=== PATIENT | male | born 1980 | race Caucasian/White ===

== ENCOUNTER 2020-10-28 19:55 | Emergency (ER) | payer BC, SELFPAY ==
[2020-10-28 19:54] VITALS: BP 152/80; PULSE 78; RESP 20; TEMP 37.2; O2SAT 97
[2020-10-28 19:59] VITALS: PULSE 68
--- NOTE | 2020-10-28 20:00 | ECG_ITS ---
Measurements Intervals [place] Rate: 71 P: 45 NH: 174 QRS: 18 QRSD: 117 T: 28 QT: 381 QTc: 416 Interpretive Statements SINUS RHYTHM INCOMPLETE RIGHT BUNDLE BRANCH BLOCK BASELINE ARTIFACT- I, II, III, AVR, AVL, AVF, V1 BORDERLINE ECG Electronically Signed On 10-29-2020 6:52:44 RN COMMUNITY by Scott Swift D.O.
[2020-10-28 20:01] VITALS: O2SAT 96
[2020-10-28 20:19] LABS: Basophils Absolute Auto 0.1 K/mm3 (0.0-0.1); Basophils Percent Auto 0.7 % (0.2-1.2); Eosinophils Absolute Auto 0.1 K/mm3 (0-0.3); Hematocrit 41.5 % (42.0-52.0); Hemoglobin 14.9 g/dL (14.0-18.0); Immature Granulocyte Absolute 0.03 K/mm3 (0.00-0.031); Immature Granulocyte Percent A 0.4 % (0-0.5); Lymphocytes Percent Auto 40.6 % (18.3-44.2); Mean Corpuscular HGB Conc 35.9 g/dl (32-36); Mean Corpuscular Hemoglobin 28.7 pg (26-34); Mean Corpuscular Volume 79.8 fl (80-100); Mean Platelet Volume 10.9 fl (7.4-10.4); Monocytes Absolute Auto 0.6 K/mm3 (0.1-0.6); Monocytes Percent Auto 8.7 % (2.6-8.5); Neutrophils Absolute Auto 3.3 K/mm3 (1.3-6.7); Neutrophils Percent Auto 47.6 % (45.5-73.1); Platelet Count Result 271 k/mm3 (150-375); Red Cell Distribution Width 12.5 % (11.5-14.5); White Blood Count 6.9 K/mm3 (4.5-10.0)
[2020-10-28 20:31] LABS: Anion Gap 7 mmol/L (8-16); Blood Urea Nitrogen 18 mg/dL (9-20); Calcium 9.1 mg/dL (8.4-10.2); Carbon Dioxide 27 mmol/L (22-30); Chloride 104 mmol/L (98-107); Estimated CRCL calculation 101 ml/min; Estimated Glomerular Filt Rate > 60; Glucose 104 mg/dL (75-110); Potassium 3.9 mmol/L (3.4-5.0); Sodium 138 mmol/L (137-145)
--- NOTE | 2020-10-28 22:12 | ED.SYNCOPE ---
HPI - Syncope General Chief Complaint: Syncope Stated Complaint: anxiety Time Seen by Provider: 10/28/20 20:58 Source: patient Mode of arrival: ambulatory Limitations: no limitations History of Present Illness HPI narrative: This is a 40 year old male who presents for evaluation of a syncopal episode. He states he was sitting at the table talking to his family about recent family issues and he started feeling warm and flush. He got up from the table to walk around and he states he became dizzy. He states he passed out and he hit his head. He also thinks he landed on his right elbow. He denies chest pain, shortness of breath. He does report a mild headache but it has improved. He has been dealing with low back pain for several weeks. He states he injured it with some heavy lifting. He has been seeing a chiropractor for his pain. He denies history of cardiac disease or syncopal episodes. Related Data Allergies Allergy/AdvReac Type Severity Reaction Status Date / Time latex Allergy Mild LOCAL RASH Verified 10/28/20 19:59 Review of Systems Review of Systems: All systems reviewed & are unremarkable except as noted in HPI and below PMFSH Past Medical History Medical History (Updated 10/29/20 @ 00:00 by Julia Brewster MD) Hypertension Surgical History Surgical History (Updated 10/28/20 @ 22:18 by Julia Brewster MD) No pertinent past surgical history Social History Social History (Updated 10/28/20 @ 22:18 by Julia Brewster MD) Smoking status: Never smoker Alcohol intake: current Alcohol use details: occasionally Exam Const: General: no acute distress and alert Orientation/consciousness: patient oriented x3 Eyes: Pupils: Equal, round and reactive pupils present EOM: EOMs intact bilaterally Resp: Effort & Inspection: normal respiratory effort and no retractions Auscultation: clear to auscultation bilaterally Cardio: Rate: regular rate Rhythm: regular rhythm Heart sounds: no murmurs Skin: General skin exam: normal color Rashes: no rashes Neuro: General: patient oriented x3, moves all extremities and CN's II-XI intact bilaterally Psych: Mental Status: mental status grossly normal Affect: normal affect Course Reevaluation(s) Reevaluation #1: PAtient states he feels better. He denies dizziness. I performed orthostats supine 168/89 BP 74 HR sitting 160/100 BP 80 HR standing 159/99 BP 73 HR. He did not have palpitations , chest pain or sob. He will follow up with PCP for further evaluation. Date: 10/28/20 Time: 23:56 Vital Signs Vital signs: Vital Signs Temperature 98.9 F 10/28/20 19:54 Pulse Rate 78 10/28/20 19:54 Respiratory Rate 20 10/28/20 19:54 Blood Pressure 152/80 H 10/28/20 19:54 Pulse Oximetry 97 10/28/20 19:54 Temperature 97.4 F L 10/29/20 00:13 Pulse Rate 86 10/29/20 00:13 Respiratory Rate 20 10/29/20 00:13 Blood Pressure 131/84 10/29/20 00:13 Pulse Oximetry 97 10/29/20 00:13 MDM - Syncope Lab Data Attestation: I reviewed the patient's lab results. Result diagrams: 10/28/20 20:05 10/28/20 20:05 Labs: Lab Results 10/28/20 10/28/20 10/28/20 Range/Units 20:05 20:05 22:28 WBC 6.9 (4.5-10.0) K/mm3 RBC 5.20 (4.6-6.20) M/mm3 Hgb 14.9 (14.0-18.0) g/dL Hct 41.5 L (42.0-52.0) % MCV 79.8 L (80-100) fl MCH 28.7 (26-34) pg MCHC 35.9 (32-36) g/dl RDW 12.5 (11.5-14.5) % Plt Count 271 (150-375) k/mm3 MPV 10.9 H (7.4-10.4) fl Immature Gran % (Auto) 0.4 (0-0.5) % Neut % (Auto) 47.6 (45.5-73.1) % Lymph % (Auto) 40.6 (18.3-44.2) % Stokes % (Auto) 8.7 H (2.6-8.5) % Eos % (Auto) 2.0 (0-4.4) % Baso % (Auto) 0.7 (0.2-1.2) % Lymph # (Auto) 2.80 (0.9-3.2) K/mm3 Stokes # (Auto) 0.6 (0.1-0.6) K/mm3 Eos # (Auto) 0.1 (0-0.3) K/mm3 Baso # (Auto) 0.1 (0.0-0.1) K/mm3 Abs Immat Gran (auto) 0.03
[2020-10-28] MEDS: LACTATED RINGERS 1,000 ML 999 ML IV CONT (22:29)
[2020-10-28 22:30] VITALS: BP 137/79; PULSE 69; RESP 23; O2SAT 97
[2020-10-28 22:42] LABS: Add Urine Microscopic? NO; Appearance Urine Clear (Clear); Bilirubin Urine Negative (Negative); Blood Urine Negative (Negative); Color Urine Straw (Yellow); Glucose Urine UA Negative (Negative); Ketones Urine Negative (Negative); Leukocyte Esterase Ur Negative LEU/UL (Negative); Nitrate Urine Negative (Negative); Protein Urine Negative (Negative); Specific Grav Ur 1.011 (1.001-1.035); Urobilinogen Urine Negative mg/dL (<2.0)
[2020-10-28 22:49] LABS: INR 0.9; Prothrombin Time 12.3 Seconds (11.1-14.7)
[2020-10-28 22:50] LABS: Partial Thromboplastin Time 24.4 SECONDS (22.3-36.8)
[2020-10-28 22:53] LABS: D Dimer 0.32 ug/mL (<0.48)
[2020-10-28 22:54] LABS: Alanine Aminotransferase 25 U/L (4-50); Albumin Level 4.4 g/dL (3.5-5.1); Alkaline Phosphatase 32 U/L (38-126); Aspartate Amino Transferase 33 U/L (17-59); Bilirubin,Total 0.7 mg/dL (0.2-1.3)
[2020-10-28 23:06] LABS: Troponin I < 0.012 ng/mL (0.000-0.034)
[2020-10-29 00:13] VITALS: BP 131/84; PULSE 86; RESP 20; TEMP 36.3; O2SAT 97
== END 2020-10-29 00:14 | disposition home or self-care (01) ==
PROVIDERS: Emergency Medicine; Emergency Provider General Practice; PCP Emergency Medicine
DX: R55 Syncope and collapse (principal); I10 Essential (primary) hypertension; I45.10 Unspecified right bundle-branch block
CPT/HCPCS: 36415; 80048; 80076; 81003; 84484; 85025; 85380; 85610; 85730; 93005; 96365; 99284; J0131; J7120

== ENCOUNTER → 2020-11-04 11:14 | Outpatient (CLI) | payer BC, SELFPAY ==
--- NOTE | ~2020-11-04 | CT_ITS ---
EXAMINATION: CT abdomen pelvis w con INDICATION: Left lower abdominal and pelvic pain TECHNIQUE: Computed tomographic images of the abdomen and pelvis were obtained after the administrati on of 100 cc of Omnipaque 350 intravenous contrast. The dose-length product (DLP) was 1032.90 mGy-cm. Automated exposure control and iterative reconstruction technique were employed. COMPARISON: 05/19/2015 FINDINGS: The lung bases are clear. The heart size is normal. The liver, spleen, pancreas, gallbladde r, and adrenal glands are normal. A 5 mm hypoattenuating lesion of the right kidney is too small to c haracterize but likely represents a cyst. The left kidney is unremarkable. No pathologically enlarged abdominal or pelvic lymph nodes are identified. The appendix is normal. There is no free intraperito sun gas or evidence of bowel obstruction. There is a tiny fat-containing umbilical hernia. IMPRESSION: 1. No CT correlate for the patient's symptoms. Reviewed, dictated and finalized at location A. DRY ROUTE DRIVER
--- NOTE | ~2020-11-04 | US_ITS ---
EXAMINATION: US scrotum doppler EXAM DATE: 11/04/2020 11:49 INDICATION: Left-sided testicular pain. TECHNIQUE: Multiple grayscale and Doppler images of the testicles and scrotum were obtained bilateral ly. There is no prior study for comparison. FINDINGS: Right testicle measures 4.1 x 2.4 x 2.7 cm and is morphologically normal. Low resistance Doppler bon w confirmed. The epididymis is unremarkable. There is small hydrocele. Left testicle measures 3.9 x 2.6 x 2.5 cm and is morphologically normal. Low resistance Doppler flow confirmed. The epididymis is unremarkable. There is small hydrocele. IMPRESSION: Small bilateral hydroceles. Otherwise unremarkable exam. Reviewed, dictated and finalized at location B. SCHOOL ENGLISH TEACHER
== END ==
PROVIDERS: PCP Emergency Medicine; Visit Provider Emergency Medicine
DX: N50.812 Left testicular pain (principal)
CPT/HCPCS: 74177; 76870; 93976; Q9967

== ENCOUNTER → 2021-03-12 10:47 | Outpatient (CLI) | payer BC, SELFPAY ==
--- NOTE | ~2021-03-12 | US_ITS ---
EXAMINATION: US abdomen limited DATE: 03/12/2021 11:11 INDICATION: Hyperbilirubinemia TECHNIQUE: Multiple grayscale and Doppler ultrasound images of the abdomen were obtained. COMPARISON: CT, 11/04/2020 FINDINGS: The head and body of the pancreas are normal. The pancreatic tail is obscured by bowel gas. The liver is normal with normal echogenicity and echotexture. No surface nodularity. Normal hepatope keyla flow in the main portal vein. The gallbladder is normal with no abnormal wall thickening, pericho lecystic fluid or stones. The normal common bile duct measures 3 mm. There was no sonographic Mckinney sign. IMPRESSION: 1. No sonographic correlate for the patient's symptoms. Reviewed, dictated and finalized at location B.
== END ==
PROVIDERS: PCP Emergency Medicine; Visit Provider Internal Medicine Gastroenterology
DX: E80.6 Other disorders of bilirubin metabolism (principal)
CPT/HCPCS: 76705

== ENCOUNTER 2021-08-27 15:48 | Emergency (ER) | payer OTHER, SELFPAY ==
[2021-08-27 17:16] VITALS: BP 163/89; PULSE 88; RESP 16; TEMP 36.6; O2SAT 100
--- NOTE | 2021-08-27 17:31 | ED.GENADULT ---
HPI - General Adult General Chief complaint: Urogenital-Male Stated complaint: flank and groin pain Source: patient Mode of arrival: ambulatory Limitations: no limitations History of Present Illness HPI narrative: Patient presents for evaluation of right-sided testicular pain, abdominal pain, and flank pain. He indicates symptoms of been present for the last few weeks but worsened in the last few days. Pain is constant, without descriptive quality, and moderate in severity. History of prostatitis and states he was treated in the past with a 14-day course of Augmentin which was effective. Semen culture grew out E. coli. No fever, chills, nausea, vomiting. No urethral discharge. He indicates he and his have not been sexually active in the last week as the are quarantining at home. His children both tested positive for Covid in the last 48 hours. Patient reports some sinus issues denies other symptoms consistent with Covid. He took a home Covid test today which was negative. Reports urinary urgency, hesitancy and sensation that he is not fully emptying his bladder after urinating Related Data Home Medications Medication Instructions Recorded Confirmed irbesartan 150 mg PO DAILY 08/27/21 08/27/21 Allergies Allergy/AdvReac Type Severity Reaction Status Date / Time latex Allergy Mild LOCAL RASH Verified 08/27/21 17:31 Review of Systems Review of Systems: CONSTITUTIONAL: Denies fever, chills, or sweats. EYES: Denies visual changes, redness, or discharge. ENT: reports sinus congestion. Denies sore throat and otalgia CARDIOVASCULAR: Denies chest pain, palpitations, or edema. RESPIRATORY: Denies cough or dyspnea. GASTROINTESTINAL: Reports right-sided abdominal pain and right flank pain.. Denies nausea, vomiting, diarrhea constipation GENITOURINARY: Reports right-sided testicular pain. Reports urinary urgency, frequency, and sensation that he has not fully emptied his bladder SKIN: Denies rash or itching. MUSCULOSKELETAL: Denies back pain, joint pain, or myalgia. NEUROLOGIC: Denies headache, numbness, dizziness, or weakness. PSYCHIATRIC: Denies anxiety or depression. [facility] Past Medical History Medical History (Updated 08/27/21 @ 17:37 by David Rai, SARAH, REGGIE) Hypertension Surgical History Surgical History History of vasectomy Family History Family History (Updated 08/27/21 @ 17:32 [facility] Mother No pertinent past medical history Social History Social History Smoking status: Never smoker Alcohol intake: current Alcohol use details: occasionally Substance use: never Living arrangements: with family Gender identity (if verbalized by the patient): Male Sexual Orientation (if Verbalized by the Patient): Straight or Heterosexual Spiritual care concerns: No Exam Narrative: GENERAL: Well-appearing, well-nourished, and in no acute distress. HEAD: Normocephalic, atraumatic. EYES: PERRLA and EOMI. ENT: Nares clear, no rhinorrhea or epistaxis. Mucous membranes moist. Oropharynx without tonsillar hypertrophy exudate or other lesions. Bilateral TMs pearly colon nonbulging NECK: Supple. No adenopathy or masses. No carotid bruits or JVD CHEST: Clear to auscultation. No respiratory distress. No wheezes rales or rhonchi HEART: Regular rate and rhythm. No murmur heard. Normal peripheral pulses. ABDOMEN: Soft, mild right-sided tenderness, nondistended, normal active bowel sounds. GENITAL: No external genital lesions. No inguinal lymphadenopathy. No scrotal swelling. Mild right testicular tenderness. No urethral discharge. RECTAL: Prostate is slightly enlarged and boggy EXTREMITIES: Normal range of motion. No edema. SKIN: Warm, dry, no rash. NEURO: No focal deficits. Alert and oriented x3. PSYCH: Normal mood and affect. Course Course Emergency
== END 2021-08-27 17:40 | disposition home or self-care (01) ==
PROVIDERS: Emergency Provider Nurse Practitioner; PCP Emergency Medicine
DX: N41.0 Acute prostatitis (principal); I10 Essential (primary) hypertension
CPT/HCPCS: 81003; 87086; 99213; G0463

== ENCOUNTER → 2022-01-06 14:24 | Outpatient (CLI) | payer OTHER, SELFPAY ==
--- NOTE | ~2022-01-06 | CT_ITS ---
EXAMINATION: CT abdomen pelvis wo con DATE: 01/06/2022 14:39 INDICATION: Prostatitis, chronic. TECHNIQUE: Computed tomography (CT) of the abdomen and pelvis was performed without intravenous contr ast. Automated exposure control and iterative reconstruction technique were employed. The dose-length product was 1033.17 mGy-cm. COMPARISON: CT abdomen and pelvis 11/04/2020 FINDINGS: The visualized portions of the lung bases are clear without pneumonia or pleural effusion. The heart size is normal. No pericardial effusion. The liver, gallbladder, spleen, pancreas, adrenal glands, and kidneys are normal. There is no urolithiasis. There is prominent fat in the inguinal jordan ls that may be hernias. There is diverticulosis of the colon without evidence of diverticulitis. Ther e are no dilated loops of bowel. The appendix is normal. There are no pathologically enlarged lymph n odes. There is no free intraperitoneal fluid. The prostate is unremarkable. There is mild lumbar spon dylosis. IMPRESSION: 1. Unremarkable prostate. Reviewed, dictated and finalized at location A. IMPRESSION: 1. Unremarkable prostate.
== END ==
PROVIDERS: PCP Emergency Medicine; Visit Provider Urology
DX: N41.1 Chronic prostatitis (principal); K57.30 Diverticulosis of large intestine without perforation or abscess without bleeding; M47.816 Spondylosis without myelopathy or radiculopathy, lumbar region
CPT/HCPCS: 74176

== ENCOUNTER 2024-07-12 09:15 | Emergency (ER) | payer OTHER, SELFPAY ==
--- NOTE | ~2024-07-12 | XR_ITS ---
EXAMINATION: XR chest 2V DATE: 07/12/2024 10:33 INDICATION: Productive cough. TECHNIQUE: Frontal and lateral views of the chest were obtained. COMPARISON: Chest 2 views 11/30/2017, CT abdomen and pelvis 01/06/2022 FINDINGS: There is no pneumonia, pleural effusion, or pneumothorax. The heart size is normal. IMPRESSION: 1. No acute cardiopulmonary disease. Reviewed, dictated and finalized at location A. DRON WORKER
--- NOTE | 2024-07-12 09:57 | ED.URI ---
HPI - URI/Sore Throat General Chief Complaint: Upper Respiratory Infection Stated Complaint: chest congestion,sorethroat Time Seen by Provider: 07/12/24 10:06 Source: patient, RN notes reviewed and old records reviewed Mode of arrival: ambulatory Limitations: no limitations History of Present Illness HPI Narrative: 44-year-old male to Express Care with complaint of chest congestion, sore throat, cough, hoarseness, nasal congestion and postnasal drainage since Sunday. Patient also endorsing a burning sensation in his bilateral upper chest with cough. 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 patient shortness of breath, difficulty swallowing, fever, pertinent medical history. Patient able to tolerate fluids by mouth. Patient resting in exam room in no acute distress, appears tired. Respirations even and nonlabored. Patient able to speak in full sentences without difficulty. Related Data Home Medications Medication Instructions Recorded Confirmed irbesartan 150 1 tablet PO DAILY 07/12/24 07/12/24 mg-hydrochlorothiazide 12.5 mg tablet Allergies Allergy/AdvReac Type Severity Reaction Status Date / Time latex Allergy Mild LOCAL RASH Verified 07/12/24 10:16 Review of Systems Review of Systems: All systems reviewed & are unremarkable except as noted in HPI and below Constitutional: Constitutional: Reports no additional constitutional complaints Eyes: Eyes: Reports no additional eye complaints ENT: Reports as per HPI, Reports hoarseness, Reports nasal congestion, Reports post nasal drip and Reports sore throat Cardiovascular: Cardiovascular: Reports no additional cardiovascular complaints, Denies chest pain and Denies dyspnea Respiratory: Respiratory: Reports as per HPI, Reports chest congestion, Reports cough and Denies dyspnea Musculoskeletal: Musculoskeletal: Reports no additional musculoskeletal complaints Neurologic: Reports system reviewed and no additional complaints, except as documented Psychiatric: Psychiatric: Reports no additional psychiatric complaints [facility] Past Medical History Medical History Hypertension Surgical History Surgical History History of vasectomy Family History Family History Mother No pertinent past medical history Social History Social History Smoking status: Never smoker Alcohol intake: current Alcohol use details: occasionally Substance use: never Living arrangements: with family Gender identity (if verbalized by the patient): Male Sexual Orientation (if Verbalized by the Patient): Straight or Heterosexual Spiritual care concerns: No Comments At the time of my signature, I reviewed and agree with the nursing past medical, surgical, social, and family history. There is no relevant family history pertinent to the patient complaint. Exam Const: General: cooperative, no acute distress, well developed, alert, tired appearing, uncomfortable, well groomed and well nourished Nutritional Appearance: well nourished Orientation/consciousness: patient oriented x3 Limitations: no limitations HENMT: Head: normal to inspection Ears: external ears normal Face/Nose/Sinus: Normal external nose present, Normal nares present, normal facial exam, No erythema and No edema Face and sinus: normal facial exam, no erythema and no edema Mouth: Yes Normal oral and palatal mucosa present Throat: posterior oropharynx abnormal erythema and postnasal drainage Eyes: General: appearance normal, both eyes and all related structures Neck: Neck: normal visual inspection, full ROM and no meningeal signs Lymphatic: no lymphadenopathy noted and no lymphedema noted Chest: Chest palpation & inspection: normal inspection of the chest Resp: Effort & Inspection: normal respiratory effort, able to speak in complete sentences and Actively coughing actively coughing Auscultation: rhonchi upper bilaterally Cardio: Jugular venous distension: no JVD Rate: regular rate Rhythm: regular rhythm Back/Spine/Pelvis: Cervical Spine: cervical ROM normal Skin: General skin exam: normal color, no rashes or lesions noted and turgor normal Neuro: General: patient oriented x3, gait normal, moves all extremities and no meningeal signs Speech: normal speech Gait exam (Neuro): Normal gait present Extrem: General: normal to inspection, full ROM and capillary refill normal Psych: Appearance: grossly normal and well kempt Course Course Emergency Course: Some parts of this dictation were generated by voice recognition software and may contain typographical and/or grammatical inaccuracies. Level of Care: Express Care Visit Vital Signs Vital signs: Vital Signs Temperature 36.9 C 07/12/24 10:20 Pulse Rate 99 07/12/24 10:20 Respiratory Rate 16 07/12/24 10:20 Blood Pressure 155/91 H 07/12/24 10:20 Pulse Oximetry 100 07/12/24 10:20 Temperature 36.9 C 07/12/24 10:20 Pulse Rate 99 07/12/24 10:20 Respiratory Rate 16 07/12/24 10:20 Blood Pressure 155/91 H 07/12/24 10:20 Pulse Oximetry 100 07/12/24 10:20 reviewed MDM - URI/Sore Throat MDM Narrative Medical decision making narrative: 44-year-old male to Express Care with complaint of chest congestion, sore throat, cough, hoarseness, nasal congestion and postnasal drainage since Sunday. Patient also endorsing a burning sensation in his bilateral upper chest with cough. 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 patient shortness of breath, difficulty swallowing, fever, pertinent medical history. Patient able to tolerate fluids by mouth. Patient resting in exam room in no acute distress, appears tired. Respirations even and nonlabored. Patient able to speak in full sentences without difficulty. On exam, posterior oropharynx erythematous with postnasal drainage. On auscultation, bilateral upper bronchial present. Patient is sitting comfortably in exam room nontoxic in appearance. Patient appropriate for outpatient treatment and follow-up. Discharge instructions reviewed with patient, as well as provided in writing per nursing staff. The instructions also include specific and strict return/GO TO THE ER as well as f/u information. All questions have been answered, and the patient deny any further questions with discharge and discharge plan. Some parts of this dictation were generated by voice recognition software and may contain typographical and/or grammatical inaccuracies. Differential Diagnosis Differential diagnosis: Likely upper respiratory infection, croup, otitis media, sinusitis, viral infection, bronchitis, influenza and pharyngitis Discharge Plan Discharge Clinical Impression: Pharyngitis Patient Disposition: Home, Self-Care Condition: Stable Instructions: Pharyngitis (ED) Additional Instructions: Your rapid strep swab was negative today at [facility]. A throat culture will be sent to the laboratory for further testing. If the test is positive, you will receive a phone call within 48 hours and an appropriate antibiotic will be initiated at that time. -Alternate Tylenol and Motrin per package directions for fever or pain. -Antihistamine medication such as Benadryl at night and Zyrtec/Claritin/Teresita during the day can help improve symptoms. -Use Flonase twice a day for 5 days then daily to help reduce the inflammation and dry up your sinuses. -You can also use Sudafed or Mucinex. Be sure to drink plenty of water with these medications at least 8 ounces with every dose and it is important to drink 8 to 10 glasses of water per day. Water is a natural decongestant -Eat and drink things that are easy to swallow, like tea or soup, or popsicles. -Oral rinses such as: Salt water gargles and/or may use topical anesthetic (eg. Chloraseptic spray) or lozenges to relieve dryness or throat pain). -Frequent hand washing or hand natural sciences manager is one of the best ways to prevent spread of infection. -Using a vaporizer or humidifier at night will also help thin secretions and help with coughing up phlegm. -Follow up with primary care provider in 2-3 days if condition is not improving; or seek ER visit if you have trouble breathing, cannot drink enough fluids, have muffled voice, difficulty opening your mouth, or severe swelling. Prescriptions: New prednisone 20 mg tablet See Rx Instructions .ROUTE .COMPLEX Qty: 9 0RF Rx Instructions: Take 40mg x3 days, 20mg x3 days azithromycin 250 mg tablet 250 mg PO DAILY Qty: 6 0RF Rx Instructions: 250 mg orally. Take TWO tablets today, then one tablet daily for 4 days. No Action irbesartan-hydrochlorothiazide 150-12.5 mg tablet 1 tablet PO DAILY Follow-up/Referrals: Frank Torres MD [Primary Care Provider] -
[2024-07-12 10:20] VITALS: BP 155/91; PULSE 99; RESP 16; TEMP 36.9; O2SAT 100
[2024-07-14 10:03] LABS: EDSTREPNEGPOS1 Negative (Negative)
== END 2024-07-12 10:55 | disposition home or self-care (01) ==
PROVIDERS: Emergency Provider Nurse Practitioner Family; PCP Emergency Medicine
DX: J02.9 Acute pharyngitis, unspecified (principal); I10 Essential (primary) hypertension
CPT/HCPCS: 71046; 87081; 87880; 99213; G0463

== ENCOUNTER 2024-11-20 09:26 | Emergency (ER) | payer OTHER, SELFPAY ==
--- NOTE | ~2024-11-20 | XR_ITS ---
EXAMINATION: XR abdomen/kub 1V DATE: 11/20/2024 10:05 INDICATION: Right flank pain. Right testicular pain. Hematuria. TECHNIQUE: A supine view of the abdomen on 2 radiographs was obtained. COMPARISON: CT abdomen and pelvis 01/06/2022 FINDINGS: There are no dilated loops of bowel. There is no visible urolithiasis. IMPRESSION: 1. No visible urolithiasis. Reviewed, dictated and finalized at location A. IMPRESSION: 1. No visible urolithiasis.
--- NOTE | 2024-11-20 09:28 | ED.URI ---
HPI - URI/Sore Throat General Chief Complaint: Upper Respiratory Infection Stated Complaint: COUGH/CONGESTION/FEVER/CHILLS & UTI SYMPTOMS Time Seen by Provider: 11/20/24 09:28 Source: patient Mode of arrival: ambulatory Limitations: no limitations History of Present Illness HPI Narrative: Jean is a 44-year-old male patient presenting to the clinic today with complaints of chest congestion, cough, fevers, chills, body aches, right flank pain, right testicle discomfort, and UTI symptoms. He reports that his cough, chest congestion, fever, chills, and body aches started 2 days ago. He states that UTI symptoms started approximately 1 week ago. Fever today in the clinic of 37.7. He is a nonsmoker. Denies any chest pain or shortness of breath. History of epididymitis and prostatitis in the past. States he has had unprotected anal sex with his . No history of kidney stones. MD elicited complaint: sore throat and nasal congestion Related Data Home Medications ?Medication ?Instructions ?Recorded ?Confirmed ?Last Taken ?Type irbesartan 150 1 tablet PO DAILY 07/12/24 07/12/24 Unknown History mg-hydrochlorothiazide 12.5 mg tablet Allergies Allergy/AdvReac Type Severity Reaction Status Date / Time latex Allergy Mild LOCAL RASH Verified 11/20/24 09:56 Review of Systems Review of Systems: Pertinent positives per HPI. Patient denies any fever, chills, rash, headache, visual changes, dizziness, cough, shortness of breath, chest pain, palpitations, nausea, vomiting, diarrhea, constipation, abdominal pain, or any urinary issues. [facility] Past Medical History Medical History Hypertension Surgical History Surgical History History of vasectomy Family History Family History Mother No pertinent past medical history Social History Social History Smoking status: Never smoker Alcohol intake: current Alcohol use details: occasionally Substance use: never Living arrangements: with family Gender identity (if verbalized by the patient): Male Sexual Orientation (if Verbalized by the Patient): Straight or Heterosexual Spiritual care concerns: No Comments At the time of my signature, I reviewed and agree with the nursing past medical, surgical, social, and family history. There is no relevant family history pertinent to the patient complaint. Exam Narrative: General: Well-developed, well nourished, in no apparent distress Head: Normocephalic, atraumatic Eyes: Pupils equally round and reactive to light bilaterally, EOM intact, sclera and conjunctive clear, no discharge, lids normal Ears: TMs intact and clear, ear canals clear, no drainage, grossly hearing normal. Nose: Nares patent, clear nasal discharge, no inflammation, no sinus tenderness. Mouth: Oral pharynx red without lesions or masses, good dentition, MMM. Postnasal drip Neck: Supple, trachea midline, no enlargement of anterior or posterior cervical nodes, no thyroid masses or goiter palpable. Cardio: Regular rate and rhythm, s1 and s2 normal, no murmur appreciated. Resp: Clear to auscultation bilaterally, no rhonchi, rales, wheezing or rubs Abdomen: Soft, pliable, bowel sounds present in all quadrants, non-tender to palpation, no organomegly, right CVAT tenderness. : Circumcised male without corneal adhesions, no penile or scrotal lesions, no urethral discharge, tenderness to palpation over the right epididymitis, no palpable mass Course Course Emergency Course: Portions of this record may have been created with voice recognition software. Level of Care: Express Care Visit Vital Signs Vital signs: Vital Signs Temperature 37.7 C H 11/20/24 09:45 Pulse Rate 107 H 11/20/24 09:45 Respiratory Rate 16 11/20/24 09:45 Blood Pressure 145/87 H 11/20/24 09:45 Pulse Oximetry 98 11/20/24 09:45 Oxygen Delivery Room Air 11/20/24 09:45 Temperature 37.7 C H 11/20/24 09:45 Pulse Rate 107 H 11/20/24 09:45 Respiratory Rate 16 11/20/24 09:45 Blood Pressure 145/87 H 11/20/24 09:45 Pulse Oximetry 98 11/20/24 09:45 Oxygen Delivery Room Air 11/20/24 09:45 Vital signs reviewed MDM - URI/Sore Throat MDM Narrative Medical decision making narrative: At the time of visit patient is resting comfortably on the exam table. Patient appears to be nontoxic. Labs: COVID, influenza, and urinalysis testing was completed. COVID testing was negative. Influenza testing was positive for influenza B. Urinalysis shows a trace of blood. We will send urine for culture Diagnostics: KUB x-ray was performed to rule out ureteral lithiasis. X-ray was negative Plan: I suspect patient has influenza B and epididymitis. Prescription for doxycycline and Tamiflu was sent to the pharmacy. Risk and benefits of the Tamiflu was discussed with the patient he voiced understanding and would like this medication prescribed. Supportive measures were discussed with the patient and they voiced understanding discharge instructions and agrees to treatment plan. Return precautions reviewed Differential Diagnosis Differential diagnosis: Likely upper respiratory infection, otitis media, sinusitis, viral infection, bronchitis, influenza, pharyngitis and other (COVID, epididymitis, prostatitis, renal stone, pyelonephritis, ureterolithiasis) Lab Data Labs: Lab Results 11/20/24 11/20/24 Range/Units 09:44 10:12 POC Urine Color Yellow POC Urine Clarity Clear POC Urine pH 6.5 POC Ur Specif [place] 1.015 POC Urine Protein Negative (Negative) POC Ur Glucose (UA) Negative (Negative) POC Urine Ketones Negative (Negative) POC Urine Blood Trace (Negative) POC Urine Nitrite Negative (Negative) POC Urine Bilirubin Negative (Negative) POC Urine Urobilinogen 0.2 POC U Leukocyte Esteras Negative (Negative) POC Influenza A Ag Negative (Negative) POC Influenza B Ag Positive (Negative) POC SARS CoV-2 Ag Negative (Negative) Imaging Data Radiologist's impression: ITS Impressions Abdomen X-Ray 11/20/24 10:11 IMPRESSION: 1. No visible urolithiasis. Discharge Plan Discharge Clinical Impression: Influenza B, Acute epididymitis Patient Disposition: Home, Self-Care Condition: Stable Instructions: Antibiotic Form, Influenza (ED) Additional Instructions: Influenza B testing was positive in the clinic today. Take prescription medications only as prescribed-Tamiflu and doxycycline Increase fluids and stay well hydrated Tylenol/motrin for pain/fever Flonase and OTC antihistamines as directed Vicks vapor rub to open sinuses Sinus rinses for congestion Cepacol spray, cough drops, throat lozenges, warm tea with honey/lemon, gargle salt water to soothe throat BRAT diet for diarrhea Clear liquids x 24 hours then advance as tolerated for nausea/vomiting Go to the ED if you develop a worsening in your condition- high fever not controlled by Tylenol or Motrin, dehydration, weakness, lethargy, shortness of breath, or chest pain. Follow up with your PCP in 3-5 days if symptoms persist. Patient Language: Serbian Prescriptions: New oseltamivir [Tamiflu] 75 mg capsule 75 mg PO Q12H 5 Days Qty: 10 0RF doxycycline monohydrate 100 mg capsule 100 mg PO BID 10 Days Qty: 20 0RF No Action irbesartan-hydrochlorothiazide 150-12.5 mg tablet 1 tablet PO DAILY prednisone 20 mg tablet See Rx Instructions .ROUTE .COMPLEX Qty: 9 0RF Rx Instructions: Take 40mg x3 days, 20mg x3 days azithromycin 250 mg tablet 250 mg PO DAILY Qty: 6 0RF Rx Instructions: 250 mg orally. Take TWO tablets today, then one tablet daily for 4 days. Follow-up/Referrals: Frank Torres MD [Primary Care Provider] - Stand Alone Forms: Work/School Release IP Quality NIHSS Nursing Documentation ED NIHSS nursing documentation: reviewed/agree
[2024-11-20 09:45] VITALS: BP 145/87; PULSE 107; RESP 16; TEMP 37.7; O2SAT 98
[2024-11-20 09:47] LABS: EDUAAPPEAR Clear; EDUABILI Negative (Negative); EDUABLOOD Trace (Negative); EDUACOLOR1 Yellow; EDUAGLUCOSE Negative (Negative); EDUAKETONE Negative (Negative); EDUALEUKO Negative (Negative); EDUANITRATE Negative (Negative); EDUAPH 6.5; EDUAPROTEIN Negative (Negative); EDUASPGRAVITY 1.015; EDUAUROBILI 0.2
[2024-11-20 10:14] LABS: EDCOVIDSCREEN Negative (Negative); EDINFLUASCREEN Negative (Negative); EDINFLUBSCREEN Positive (Negative)
== END 2024-11-20 10:20 | disposition home or self-care (01) ==
PROVIDERS: Emergency Provider Nurse Practitioner Family; PCP Emergency Medicine
DX: J10.1 Influenza due to other identified influenza virus with other respiratory manifestations (principal); N45.1 Epididymitis; Z20.822 Contact with and (suspected) exposure to COVID-19; I10 Essential (primary) hypertension; Z98.52 Vasectomy status
CPT/HCPCS: 74018; 81003; 87086; 87426; 87804; 99213; G0463